=== PATIENT | female | born 1995 | race Caucasian/White ===

== ENCOUNTER 2019-07-03 12:11 | Emergency (ER) | payer OTHER ==
[2019-07-03 13:23] LABS: Bilirubin Negative (Negative); Blood, Urine 2+ (Negative); Clarity Turbid (Clear); Glucose, Urine (Dipstick) Normal (Negative); Leukocyte 500 Leu/uL (Negative); Nitrite Negative (Negative); Protein, Urine (Dipstick) Negative (Neg-Trace); Urobilinogen Normal mg/dL (Less than 2); WBC/HPF Greater than 50 HPF (0-3)
[2019-07-03 13:27] LABS: Pregnancy Test - Urine (BHCG) Negative (Negative); Pregu Control Background? CLEAR/WHITE (CLR/WHITE); Pregu Control Bar Appear? YES (CONTROL BAR); Specific Gravity 1.021 (1.002-1.036)
[2019-07-03 13:35] LABS: Bacteria/HPF Rare-Few HPF (None Seen)
[2019-07-03] MEDS ORDERED: Dexamethasone 4 MG TAB ONE (13:41)
[2019-07-03] MEDS ORDERED: Lidocaine 1% PF 5 ML VIAL ONE (14:06)
[2019-07-03] MEDS ORDERED: Azithromycin 250 MG TAB ONE (14:06)
[2019-07-03] MEDS ORDERED: cefTRIAXone\\ROCEPHIN 250 MG VIAL ONE (14:06)
[2019-07-05 22:36] LABS: Chlamydia by PCR Not Detected (NotDetected); GC by PCR Not Detected (NotDetected)
== END 2019-07-03 14:40 | disposition home or self-care (01) ==
LOC: ERS 12:11
DX: J20.8 Acute bronchitis due to other specified organisms (principal); A64 Unspecified sexually transmitted disease
CPT/HCPCS: 81003; 81015; 81025; 87077; 87081; 87086; 87430; 87480; 87491; 87510; 87591; 87660; 96372; 99283; J0696; J2001; J8540